=== PATIENT | male | born 1955 | race Caucasian/White ===

== ENCOUNTER → 2017-06-25 | Outpatient (CLI) | payer BC ==
[~2017-06-25] MED LIST: CELEXA40 MG PO; CEPHALEXIN500 MG PO; CIPRO500 MG PO; CITALOPRAM HBR20 MG PO; CITRACAL-VIT D1 EACH PO; COLACE100 MG PO; DILAUDID2 MG PO; EFFEXOR75 MG PO; ENBREL50 MG/1 ML SC; FLONASE16 G1 BOTH NARES; GABAPENTIN100 MG PO; GLUCOPHAGE500 MG PO; IRON325 MG PO; MEDROL4 MG PO; MITIGARE0.6 MG PO; MORPHINE SULFAT45 MG PO; MULTIVITAMIN1 EAC2 PO; NICODERM CQ1 EAC1 TD; OMEPRAZOLE20 MG PO; OMEPRAZOLE40 M1 PO; ORENCIA125 MG/1 M SC; OXYCODONE HCL10 MG PO; PERCOCET 5/31 TABLET PO; PETROLEUM JELL127 GM TP; PREDNISONE20 MG PO; TAMSULOSIN HCL0.4 MG PO; ZENPEP DR 5,001 EACH PO
== END | disposition home or self-care (01) ==
LOC: CDC 14:30
DX: K43.2 Incisional hernia without obstruction or gangrene (principal); R94.31 Abnormal electrocardiogram [ECG] [EKG]
CPT/HCPCS: 93000

== ENCOUNTER 2017-06-29 07:34 | Day surgery (SDC) | payer BC ==
[~2017-06-29] VITALS: Ht 185.4 cm; Wt 80.4 kg
[2017-06-29] MEDS ORDERED: OXYCODONE HCL10 MG PO (08:33)
[2017-06-29] MEDS ORDERED: MORPHINE SULFAT45 MG PO (08:34)
[2017-06-29 08:36] VITALS: BP 123/76
[2017-06-29 08:47] LABS: POINT-OF-CARE METER ID UU13113694
[2017-06-29 08:48] LABS: HEMATOCRIT 33.7 % (38.0-50.0); MCH 22.8 PG (29.0-34.0); MCHC 30.9 G/DL (30.0-36.0); MCV 73.9 FL (86-99); MEAN PLAT.VOLUME 10.5 uM^3 (9.0-12.4); PLATELET COUNT 267 K/uL (156-360); RBC DIS.WIDTH-CV 17.7 % (11.8-14.6); RBC DIS.WIDTH-SD 46.6 % (39-53); RED BLOOD COUNT 4.56 M/uL (4.00-5.50); WHITE BLOOD COUNT 9.6 K/uL (4.1-10.2)
[2017-06-29 10:09] LABS: METH RESISTANT S AUREUS PCR NEGATIVE (NEGATIVE)
[2017-06-29 10:10] LABS: PROBE CHECK PASS; SPECIMEN PROCESSING CONTROL PASS
[2017-06-29 15:54] LABS: POINT-OF-CARE METER ID UU13113675
[2017-06-29 16:55] VITALS: BP 164/86
[2017-06-29 19:10] VITALS: BP 157/83
[2017-06-29 23:10] VITALS: BP 152/82
[2017-06-30 03:20] VITALS: BP 126/73
[2017-06-30 07:10] VITALS: BP 108/71
[2017-06-30 07:12] LABS: EOSINOPHIL (%) 1.3 % (0-5); EOSINOPHIL COUNT 0.1 K/uL (0-0.3); HEMATOCRIT 28.5 % (38.0-50.0); IMMATURE GRANULOCYTE (%) 0.9 % (0.0-0.7); IMMATURE GRANULOCYTE COUNT 0.1 K/uL; INSTRUMENT ABS NEUTROPHIL CT 6.7 K/uL; LYMPHOCYTE COUNT 1.4 K/uL (1.0-2.8); MCH 23.7 PG (29.0-34.0); MCHC 31.6 G/DL (30.0-36.0); MCV 75.2 FL (86-99); MEAN PLAT.VOLUME 10.5 uM^3 (9.0-12.4); MONOCYTE (%) 6.1 % (3-12); MONOCYTE COUNT 0.5 K/uL (0-0.8); NEUTROPHIL (%) 76.1 % (45-76); NEUTROPHIL COUNT 6.7 K/uL (1.8-6.4); PLATELET COUNT 217 K/uL (156-360); RBC DIS.WIDTH-SD 48.8 % (39-53); RED BLOOD COUNT 3.79 M/uL (4.00-5.50); WHITE BLOOD COUNT 8.7 K/uL (4.1-10.2)
[2017-06-30 07:35] LABS: ALKALINE PHOSPHATASE 60 IU/L (3-129); ANION GAP 7 MEQ/L (2-14); CHLORIDE 109 MEQ/L (99-109); GFR ESTIMATE (CALCULATED) > 59 mL/min/; GLUCOSE 74 mg/dL (70-99); MAGNESIUM 1.1 mg/dl (1.3-2.7); POTASSIUM 3.8 MEQ/L (3.7-5.4); SAMPLE HEMOLYSIS CHECK 0; SAMPLE ICTERIC CHECK 0; SAMPLE LIPEMIA CHECK 0; SODIUM 140 MEQ/L (136-147); TOTAL BILIRUBIN 0.3 MG/DL (0.0-1.0); UREA NITROGEN (BUN) 14 mg/dL (9-23)
[2017-06-30 11:48] VITALS: BP 109/60
[2017-06-30 19:18] VITALS: BP 119/68
[2017-06-30 23:10] VITALS: BP 136/75
[2017-06-30 23:24] LABS: TROP-I INTERPRETATION NEGATIVE; TROPONIN-I < 0.01 ng/mL (0.0-0.30)
[2017-07-01 03:38] VITALS: BP 130/73
[2017-07-01 07:37] VITALS: BP 115/67
[2017-07-01 09:31] LABS: EOSINOPHIL COUNT 0.1 K/uL (0-0.3); HEMATOCRIT 28.4 % (38.0-50.0); IMMATURE GRANULOCYTE COUNT 0.1 K/uL; INSTRUMENT ABS NEUTROPHIL CT 5.3 K/uL; LYMPHOCYTE COUNT 1.5 K/uL (1.0-2.8); MCH 22.8 PG (29.0-34.0); MCHC 30.6 G/DL (30.0-36.0); MCV 74.5 FL (86-99); MEAN PLAT.VOLUME 10.9 uM^3 (9.0-12.4); MONOCYTE (%) 5.6 % (3-12); MONOCYTE COUNT 0.4 K/uL (0-0.8); NEUTROPHIL (%) 72.2 % (45-76); NEUTROPHIL COUNT 5.3 K/uL (1.8-6.4); PLATELET COUNT 176 K/uL (156-360); RBC DIS.WIDTH-CV 17.8 % (11.8-14.6); RBC DIS.WIDTH-SD 47.2 % (39-53); RED BLOOD COUNT 3.81 M/uL (4.00-5.50); WHITE BLOOD COUNT 7.3 K/uL (4.1-10.2)
[2017-07-01 09:46] LABS: ALKALINE PHOSPHATASE 63 IU/L (3-129); ANION GAP 7 MEQ/L (2-14); CHLORIDE 105 MEQ/L (99-109); GFR ESTIMATE (CALCULATED) > 59 mL/min/; POTASSIUM 3.5 MEQ/L (3.7-5.4); SAMPLE HEMOLYSIS CHECK 0; SAMPLE ICTERIC CHECK 0; SAMPLE LIPEMIA CHECK 0; SODIUM 139 MEQ/L (136-147); UREA NITROGEN (BUN) 9 mg/dL (9-23)
[2017-07-01 09:50] LABS: GLUCOSE 96 mg/dL (70-99); TOTAL BILIRUBIN 0.4 MG/DL (0.0-1.0)
[2017-07-01 11:31] VITALS: BP 119/66
[2017-07-01] MEDS ORDERED: ROXICODONE5 MG PO (11:46)
[2017-07-01 15:45] VITALS: BP 122/67
== END 2017-07-01 18:00 | disposition home or self-care (01) ==
LOC: SDC 07:34 → EDSTATUS 11:03 → SDC 11:04 → 2SOUTH 13:20 → 2EAST 15:25 → 2SOUTH 15:25 → SDC 15:50 → ENRESERV 15:58 → 2EAST 16:35
PROVIDERS: Surgery
DX: K43.2 Incisional hernia without obstruction or gangrene (principal); K42.9 Umbilical hernia without obstruction or gangrene; R07.9 Chest pain, unspecified; G89.18 Other acute postprocedural pain; M06.9 Rheumatoid arthritis, unspecified; E11.9 Type 2 diabetes mellitus without complications; G89.29 Other chronic pain; Z80.0 Family history of malignant neoplasm of digestive organs; F17.210 Nicotine dependence, cigarettes, uncomplicated; D63.8 Anemia in other chronic diseases classified elsewhere; K74.60 Unspecified cirrhosis of liver; Z79.84 Long term (current) use of oral hypoglycemic drugs; Z79.52 Long term (current) use of systemic steroids
CPT/HCPCS: 71010; 80053; 82948; 83735; 84100; 84484; 85025; 85027; 86140; 87641; 93005; 94799; 97530 GP; C1781; G0378; G8978 GP CJ; G8979 GP CH; G8987 GO CJ; G8988 GO CH; J0330; J0690; J1170; J1720; J1885; J2270; J2405; J2710; J3010; J3370; J3475; J7120; J7509

== ENCOUNTER → 2018-02-23 | Outpatient (CLI) | payer BC ==
[~2018-02-23] MED LIST changes: +ROXICODONE5 MG PO
== END | disposition home or self-care (01) ==
LOC: RAD 08:58
DX: K70.30 Alcoholic cirrhosis of liver without ascites (principal); Z86.010 Personal history of colon polyps
CPT/HCPCS: 74241